=== PATIENT | female | born 1995 | race Caucasian/White ===

== ENCOUNTER 2018-01-25 19:23 | Emergency (ER) | payer OTHER, MEDICAID, SELFPAY ==
[2018-01-25 19:27] VITALS: BP 127/75; PULSE 115; RESP 18; TEMP 38.6; O2SAT 97; BMI 19.5
[2018-01-25 20:17] VITALS: BP 125/67; PULSE 104; RESP 24; O2SAT 98
--- NOTE | 2018-01-25 20:21 | ED.FEVER ---
HPI - Fever General Chief Complaint: Fever Stated Complaint: ABCESS RIGHT ARM,NAUSEA,HOT,BODY IS SORE,FEVER Time Seen by Provider: 01/25/18 20:18 History of Present Illness HPI Narrative: Patient not seen or evaluated by me Related Data Home Medications Medication Instructions Recorded Confirmed buprenorphine HCl 8 mg SUBLINGUAL QDAY #0 03/30/17 norethindrone-e.estradiol-iron 1 tab PO #0 09/17/17 [[place] Fe 10/09 ()] Previous Rx's Medication Instructions Recorded dicloxacillin 250 mg PO QID #28 cap 09/20/17 cephalexin [Keflex] 500 mg PO TID #30 cap 01/25/18 sulfamethoxazole-trimethoprim 1 tab PO BID 10 Days #20 tab 01/25/18 [Bactrim DS] Allergies Allergy/AdvReac Type Severity Reaction Status Date / Time lorazepam [LORAZEPAM] AdvReac Intermediate HALLUCINATI Verified 01/25/18 20:44 ONS [facility] Social History Smoking Status: Current every day smoker Discharge Plan Departure Patient Disposition: Home, Self-Care Clinical Impression: Cellulitis and abscess of hand Discharge Date/Time: 01/25/18 22:43 Interventions: ED Discharge Assessment Last Done: 01/25/18 22:43 Instructions: DI for Cellulitis -- Adult Activity Restrictions/Additional Instructions: *You have been diagnosed with cellulitis of right arm *What to do: Increase fluid intake with water and Gatorade like substance, fever control with Tylenol and ibuprofen take as directed *Take medications as directed -Septra twice a day for 10 days until gone -Keflex 3 times overall for 10 days until gone *Follow up with your primary care provider in 2-3 days *Return to ER if you should have worsening redness, fever not controlled, decreased fluid intake or any new, worsening or concerning symptoms Prescriptions: New sulfamethoxazole-trimethoprim [Bactrim DS] 800-160 mg tablet 1 tab PO BID 10 Days Qty: 20 RF: 0 cephalexin [Keflex] 500 mg capsule 500 mg PO TID Qty: 30 RF: 0 No Action buprenorphine HCl 8 MG tablet, sublingual 8 mg Sublingual QDAY Qty: 0 RF: 0 norethindrone-e.estradiol-iron [[place] Fe 10/09 ()] 1 MG/20 MCG tablet 1 tab PO Qty: 0 RF: 0 dicloxacillin 250 MG capsule 250 mg PO QID Qty: 28 RF: 0 Referrals: Mehran Hodges MD [Physician] -
[2018-01-25] MEDS: ACETAMINOPHEN 325 MG TABLET 975 MG PO (20:44)
[2018-01-25 21:13] VITALS: BP 111/66; PULSE 104; RESP 22; O2SAT 98
[2018-01-25 22:10] VITALS: BP 126/66; PULSE 104; RESP 14; TEMP 37.6; O2SAT 100
[2018-01-25] MEDS: cephALEXin 250 MG PREPACK 1 BOTTLE MISC (22:28)
--- NOTE | 2018-01-25 22:33 | PC.NURSE ---
unsuccessful attempt for bld drawn by air analysis engineering technician on L arm and bld drawn on L groin by MD. Discussed plan of care with MD and pt on oral bx medications tx and oral hydration and to watch for not improving signs of infection in 2 days and to RTE and pt verbalized the understanding.
[2018-01-25 22:35] VITALS: TEMP 37.6
[2018-01-25] MEDS: SULFA/TRIMETH 800/160 PREPACK 1 BOTTLE MISC (22:39)
--- NOTE | 2018-01-26 03:35 | ED_ITS ---
HPI - Fever General Chief Complaint: Fever Stated Complaint: ABCESS RIGHT ARM,NAUSEA,HOT,BODY IS SORE,FEVER Time Seen by Provider: 01/25/18 20:18 History of Present Illness HPI Narrative: Patient not seen or evaluated by me Related Data Home Medications Medication Instructions Recorded Confirmed buprenorphine HCl 8 mg SUBLINGUAL QDAY #0 03/30/17 norethindrone-e.estradiol-iron 1 tab PO #0 09/17/17 [[place] Fe 10/09 ()] Previous Rx's Medication Instructions Recorded dicloxacillin 250 mg PO QID #28 cap 09/20/17 cephalexin [Keflex] 500 mg PO TID #30 cap 01/25/18 sulfamethoxazole-trimethoprim 1 tab PO BID 10 Days #20 tab 01/25/18 [Bactrim DS] Allergies Allergy/AdvReac Type Severity Reaction Status Date / Time lorazepam [LORAZEPAM] AdvReac Intermediate HALLUCINATI Verified 01/25/18 20:44 ONS [facility] Social History Smoking Status: Current every day smoker Discharge Plan Departure Patient Disposition: Home, Self-Care Clinical Impression: Cellulitis and abscess of hand Discharge Date/Time: 01/25/18 22:43 Interventions: ED Discharge Assessment Last Done: 01/25/18 22:43 Instructions: DI for Cellulitis -- Adult Activity Restrictions/Additional Instructions: *You have been diagnosed with cellulitis of right arm *What to do: Increase fluid intake with water and Gatorade like substance, fever control with Tylenol and ibuprofen take as directed *Take medications as directed -Septra twice a day for 10 days until gone -Keflex 3 times overall for 10 days until gone *Follow up with your primary care provider in 2-3 days *Return to ER if you should have worsening redness, fever not controlled, decreased fluid intake or any new, worsening or concerning symptoms Prescriptions: New sulfamethoxazole-trimethoprim [Bactrim DS] 800-160 mg tablet 1 tab PO BID 10 Days Qty: 20 RF: 0 cephalexin [Keflex] 500 mg capsule 500 mg PO TID Qty: 30 RF: 0 No Action buprenorphine HCl 8 MG tablet, sublingual 8 mg Sublingual QDAY Qty: 0 RF: 0 norethindrone-e.estradiol-iron [[place] Fe 10/09 ()] 1 MG/20 MCG tablet 1 tab PO Qty: 0 RF: 0 dicloxacillin 250 MG capsule 250 mg PO QID Qty: 28 RF: 0 Referrals: Mehran Hodges MD [Physician] -
--- NOTE | 2018-01-26 03:50 | ED_ITS ---
HPI - Fever General Chief Complaint: Fever Stated Complaint: ABCESS RIGHT ARM,NAUSEA,HOT,BODY IS SORE,FEVER Time Seen by Provider: 01/25/18 20:18 Source: patient and RN notes reviewed Mode of arrival: ambulatory History of Present Illness HPI Narrative: Patient is a 22-year-old female who presents with fever and body aches. She has a known history of IV drug abuse though she says she has not injected in a number of months and now smokes she does not have any veins left. She has a chronic ongoing right elbow wound she was initially seen by wound care for it. She has noted increased swelling in her arm and redness. No real drainage or pain at the wound site. She is noted be febrile and tachycardic in the ED. MD complaint: fever, malaise and weakness Onset (ago): day(s) (2) Associated symptoms: rigors, headache and rash Treatments prior to arrival fever: none Related Data Home Medications Medication Instructions Recorded Confirmed buprenorphine HCl 8 mg SUBLINGUAL QDAY #0 03/30/17 norethindrone-e.estradiol-iron 1 tab PO #0 09/17/17 [[place] Fe 10/09 (28)] Previous Rx's Medication Instructions Recorded dicloxacillin 250 mg PO QID #28 cap 09/20/17 cephalexin [Keflex] 500 mg PO TID #30 cap 01/25/18 sulfamethoxazole-trimethoprim 1 tab PO BID 10 Days #20 tab 01/25/18 [Bactrim DS] Allergies Allergy/AdvReac Type Severity Reaction Status Date / Time lorazepam [LORAZEPAM] AdvReac Intermediate HALLUCINATI Verified 01/25/18 20:44 ONS Review of Systems Review of Systems All systems reviewed & are unremarkable except as noted in HPI and below Constitutional Reports body ache(s), Reports chills, Reports fever(s), Denies lethargy and Denies weakness Eyes Denies change in vision, Denies eye discharge, Denies irritation and Denies loss of vision Cardiovascular Denies chest pain, Denies irregular heart rhythm, Denies lightheadedness, Denies palpitations, Denies dyspnea, Denies dyspnea on exertion and Denies orthopnea Respiratory Denies cough, Denies dyspnea, Denies dyspnea on exertion and Denies wheezing Gastrointestinal Gastrointestinal: Denies abdominal pain, Denies change in bowel habits, Denies diarrhea, Denies nausea and Denies vomiting Genitourinary Denies hematuria, Denies flank pain, Denies urinary incontinence and Denies urinary urgency Integumentary/Breasts Reports system reviewed and no additional complaints, except as docu, Reports as per HPI and Reports erythema Neurologic Denies loss of vision and Denies weakness Endocrine Denies palpitations Allergic/Immunologic Denies wheezing [facility] Social History Smoking Status: Current every day smoker Exam Const General: well developed and No intoxicated appearing Nutritional Appearance: thin Orientation: alert, awake, oriented x3 and oriented to person HENMT Head: normocephalic and atraumatic Ears: external ears normal and TM's normal bilaterally Nose: external nose normal and No nasal discharge Face and sinus: sinuses nontender, face symmetric, no sinus tenderness and No dry mucous membranes Mouth: oral mucosae normal and moist mucous membranes Teeth and gingiva: dentition normal Throat: tonsils normal and uvula midline Neck Neck: normal visual inspection, trachea midline, No lymphadenopathy, No midline deformity and No JVD Lymphatic: No lymphedema Resp Effort & Inspection: normal respiratory effort, able to speak in complete sentences, no respiratory distress and no use of accessory muscles Auscultation: clear to auscultation bilaterally, no rales, no rhonchi and no wheezes Cardio Rate: tachycardic Rhythm: regular rhythm Heart Sounds: no click, no gallops, no murmurs and no rubs Pulses: normal peripheral pulses GI Inspection: non-distended Palpation: soft, no hepatosplenomegaly, No guarding, No pulsatile mass and No tender Auscultation: normal bowel sounds Skin Other: Chronic wound on right elbow no gross pus. She does have some surrounding erythema extending down her forearm no streaking. She has multiple track west all over. Her hands and fingers are red bilaterally she says that is normal for her. Neuro General: alert, oriented x3, gait normal and no focal motor deficits Cranial Nerves: CN's II-XI intact bilaterally Speech: speech normal Motor: strength 5/5 throughout Sensory Exam: no sensory deficits noted Extrem Right upper extremity: normal to inspection Left upper extremity: normal to inspection Right lower extremity: normal to inspection Left lower extremity: normal to inspection MDM - Fever MDM Narrative Medical decision making narrative: Patient is requesting that the PICC nurse come in if she needed an IV. I had did peripheral IV access with a central line. Unfortunately unsuccessful. Patient agreed to a fem stick for blood. His that also unsuccessful and she did not tolerate procedure. She is given medication is for fever she is tolerating oral fluids. She is refusing any other care. She is given 2 different antibiotics she understands the importance of taking them. She also understands that possibility of bacteremia, however at this point looks superficial cellulitis. The understand when to return to the ED. Differential Diagnosis Likely cellulitis and sepsis Discharge Plan Departure Patient Disposition: Home, Self-Care Clinical Impression: Cellulitis and abscess of hand Discharge Date/Time: 01/25/18 22:43 Interventions: ED Discharge Assessment Last Done: 01/25/18 22:43 Instructions: DI for Cellulitis -- Adult Activity Restrictions/Additional Instructions: *You have been diagnosed with cellulitis of right arm *What to do: Increase fluid intake with water and Gatorade like substance, fever control with Tylenol and ibuprofen take as directed *Take medications as directed -Septra twice a day for 10 days until gone -Keflex 3 times overall for 10 days until gone *Follow up with your primary care provider in 2-3 days *Return to ER if you should have worsening redness, fever not controlled, decreased fluid intake or any new, worsening or concerning symptoms Prescriptions: New sulfamethoxazole-trimethoprim [Bactrim DS] 800-160 mg tablet 1 tab PO BID 10 Days Qty: 20 RF: 0 cephalexin [Keflex] 500 mg capsule 500 mg PO TID Qty: 30 RF: 0 No Action buprenorphine HCl 8 MG tablet, sublingual 8 mg Sublingual QDAY Qty: 0 RF: 0 norethindrone-e.estradiol-iron [[place] Fe 10/09 ()] 1 MG/20 MCG tablet 1 tab PO Qty: 0 RF: 0 dicloxacillin 250 MG capsule 250 mg PO QID Qty: 28 RF: 0 Referrals: Mehran Hodges MD [Physician] -
== END 2018-01-25 22:43 | disposition home or self-care (01) ==
PROVIDERS: Emergency Provider Emergency Medicine
DX: L03.119 Cellulitis of unspecified part of limb (principal); L02.519 Cutaneous abscess of unspecified hand
CPT/HCPCS: 99283